=== PATIENT | male | born 1930 | race Caucasian/White ===

== ENCOUNTER → 2018-10-04 | Outpatient (CLI) | payer MEDICARE, OTHER ==
[~2018-10-04] VITALS: Ht 182.9 cm; Wt 68.0 kg
[~2018-10-04] MED LIST: ASPIRIN325 PO; ASTEPRO205.5 MCG/ NS; CLOPIDOGREL75 MG PO; COMBIGAN EYE DR10 ML OP; KEFLEX500 M1 PO; LIPITOR10 MG PO; LISINOPRIL10 MG PO; LUMIGAN2.5 M1 OP; UNICOMPLEX M TA1 TA1 PO; ZYRTEC10 M5 PO; [UNRECOGNIZED DRUG - OTHER] TP
[2018-10-04 09:35] VITALS: BP 140/67
[2018-10-04 09:41] LABS: HEMATOCRIT 30.2 % (42.0-52.0); HEMOGLOBIN 10.1 gm/dL (14.0-18.0); MCH 30.7 pg (26.0-34.0); MCHC 33.3 g/dL (28.0-37.0); MCV 92.3 fL (80.0-100.0); MPV 7.7 fl. (7.2-11.1); RBC 3.27 mil/uL (4.50-6.00); RDW-CV 13.8 % (10.5-14.5)
[2018-10-04 09:42] LABS: POTASSIUM 3.5 mmol/L (3.5-5.1)
[2018-10-04 09:45] LABS: APTT 26.8 Seconds (25.0-31.3); INR 1.2; PROTIME 12.3 Seconds (9.20-11.50)
[2018-10-04 10:00] VITALS: BP 140/67
--- NOTE | 2018-10-20 09:08 | PATH ---
[address] [place] [address] PATHOLOGY RPT PROCEDURE Name: JIM COON Room: [facility] SARAH Lamont#: [id number] Admission: 10/04/18 Date of : [birth year] Discharge: Report #: [id number] Path Case #: [id number] LCA Accession Number: [id number] . 01 Material submitted: . LIVER MASS BIOPSY . 01 Clinical history: . 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 02 Diagnosis: Liver, biopsy: - Adenocarcinoma. - Background foci of lymphocytes present, see included flow report for further diagnosis (History of CLL noted). - See comment. (MAP:administrative asst; 10/06/2018) AZJ/10/07/2018 . 02 Comment: Immunohistochemical stains are performed on this specimen (block A2; appropriate controls) as follows: . TTF-1 - Positive. Napsin- A - Positive. CK7 - Positive. CK20 - Negative. CDX2 - Negative. T40 - Negative. . The immuno profile and histologic findings are compatible with an adenocarcinoma, and is consistent with a lung primary. . These findings are discussed with Dr. Shaheen Vasquez's nurse, on 10/06/2018 at 3:25 p.m. . Co-review is Dr. Guzman. . ([place] [place] 10[place]06[place]2018) . 02 Addendum: . Special studies report received from [facility], [address] [place] [address], [address], [place], [address], on case [id number], labeled with their number [id number], dated 10/14/2018. . PD-L1 [place] [address] PATHOLOGY RPT PROCEDURE Name: JIM COON JOSE Room: [facility]#: [id number] Admission: 10/04/18 Date of : [birth year] Discharge: Report #: [id number] Path Case #: [id number] Body site: Liver, mass, biopsy. Specimen received: 1 paraffin block labeled "[id number]". . Clinical History Non-small cell carcinoma . Results Table PD-L1 - KEYTRUDA (R) Tumor Interpretation Proportion [id number] 50% High Expression . . Reference Ranges PD-L1 protein expression is determined by using the Tumor Proportion Score (TPS), which is the percentage of at least 100 viable tumor cells showing complete or partial membrane staining at greater than or equal to 1+. TPS less than 1% = No Expression TPS between 1% and 49% = Low Expression - Eligible for second-line treatment with KEYTRUDA (R) (pembrolizumab). TPS greater than or equal to 50% = High Expression - Eligible for first or second-line treatment with KEYTRUDA (R) (pembrolizumab). . . at [facility]. Luke Fish M.D. . Tests PD-L1 IHC Analysis . Intended Use: PD-L1, 22C3 pharmDx (TM) is FDA approved for use in the detection of PD-L1 in formalin-fixed paraffin-embedded non-small cell lung carcinoma using the [employer] 48 platform. The Assay is indicated as an aid in identifying metastatic NSCLC patients for treatment with KEYTRUDA(R) (pembrolizumab). PD-L1, 22C3 pharmDx (TM) is a trademark of [employer] an [employer]. Reference ranges for this test in other cancer types are not approved at this time. . References: Delia RS, Miah P, Eva D-W, et al: Pembrolizumab versus docetaxel for previously treated, HE-A9-ukoeufui, advanced tpi-pdwlr-bjzx lung cancer (KEYNOTE-010): a randomized controlled trial. Lancet 2015 Jul 14; Online(44) 9666-2. . Saida CANADA, Jeana NA, Amalia R, et al: Pembrolizumab for the Treatment of Ijb-Lvidt-Lhui Lung Cancer. N Engl J Med 2015 December 14; 372:7896-2378. . Please contact [facility] [place] [address] PATHOLOGY RPT PROCEDURE Name: JIM COON Room: [facility] WANDA Miguel#: [id number] Admission: 10/04/18 Date of : [birth year] Discharge: Report #: [id number] Path Case #: [id number] . Disclaimer This Test was performed by [facility]. at [address] [place] [address] [address], [place], [address]. [facility] is a business unit of [employer] a wholly-owned subsidiary of [employer]. . . Any image(s) that accompany this report is/are a it sales representative image(s) only and should not be used to render a diagnosis. . This interpretation is contingent on the specimen and the clinical information received. . Known positive cells or tissues are employed with each test and examined to ensure positivity. Positive and negative internal controls, if present, react appropriately. . This analysis is an adjunct to the evaluation of the referring physician and does not represent a final diagnosis. . The immunohistochemistry tests performed at [facility]. were validated on tissue fixed in 10% neutral buffered formalin. The performance characteristics of the tests performed on tissue processed in other fixatives is not known. . This assay has not been validated on decalcified tissues. Results should be interpreted with caution if this specimen was decalcified given the likelihood of decreased staining or false negativity on decalcified specimens. . . A complete copy of the report is on file. . Professional services performed by [employer]. at [address], [place] [address]. Technical services performed by [employer]. at [facility] [facility] [address], [place] [address]. . (AMJ 10/14/2018) . . . . . Special studies report received from [facility], [address] [place] [address], [address], [place], [address], on case [id number], labeled with their number [id number], dated 10/14/2018. [place] [address] PATHOLOGY RPT PROCEDURE Name: JIM COON JOSE Room: [facility]#: [id number] Admission: 10/04/18 Date of : [birth year] Discharge: Report #: [id number] Path Case #: [id number] . Fluorescence in situ Hybridization (FISH) Report TargetGene Analysis . RESULT: Negative for ROS1 gene rearrangement . Specimen Type: Tissue, Liver Biopsy . Indication for Study: Adenocarcinoma, Lung Primary . INTERPRETATION: Fluorescence in situ hybridization (FISH) analysis was performed on this patient's paraffin embedded tissue specimen using a dual color break apart DNA probes for ROS1 gene. . One hundred interphase nuclei were examined and no evidence of a ROS1 gene specific rearrangement (split signal pattern) was detected. . Genetic changes other than those assayed here cannot be ruled out on the basis of this testing. Correlation with clinical and other pathological findings is suggested for a complete interpretation of these results. . See report [id number] for further information. See report [id number] for further information. See Molecular report [id number] for further information. . The following TargetGene FISH analysis was performed on this patient's specimen: . Probe Detection Parameters Result ISCN ROS1 (6q22) Detects a rearrangement Not Detected nuc cherri(3'ROS1, of the ROS1 gene 5'ROS1)x2(3'ROS1 con 5'ROS1x2)(100) . . . . at [facility] [facility]. Madeleine Doll, PhD, FAC Director of Clinical Cytogenetics . Methodology: The patient specimen is processed onto a glass slide. Fluorescent DNA probe(s) is(are) applied to the cells on the slide under conditions of denaturation followed by hybridization. Stringency washes are applied and the slide is subsequently counterstained. A minimum of 100 interphase nuclei are analyzed unless otherwise [place] [address] PATHOLOGY RPT PROCEDURE Name: JIM COON JOSE Room: [facility]#: [id number] Admission: 10/04/18 Date of : [birth year] Discharge: Report #: [id number] Path Case #: [id number] References: Jose Antonio Pereira, Mayur BUCHANAN, et al. ROS1 rearrangements define a unique molecular class of lung cancers. J Clin Oncol, 2012;30:863-70. . Jose Antonio LAWRENCE, Mayur FLEMING, Kaiser Y-J, et al. Crizotinib in ROS1-rearranged gyo-umbdu-cinm lung cancer. N Engl J Med, 2014;371:1963-71 . Disclaimer This Test was performed by [employer] at [address] [place] [address]. . [facility] is a business unit of [employer] a wholly-owned subsidiary of [employer]. . . This assay has not been validated on decalcified tissues. Results should be interpreted with caution if this specimen was decalcified given the likelihood of false negativity on decalcified specimens. . Any image(s) that accompany this report is/are a it sales representative image(s) only and should not be used to render a diagnosis. . This test was developed and its performance characteristics determined by [employer]. It has not been cleared or approved by the Food and Drug Administration. . A complete copy of the report is on file. . Professional services performed by [employer]. at [address] [place] [address], [place] [id number]. Technical services performed by [employer]. at [address] [place], [place] [id number]. . (AM 10/15/2018) . . . . . Special studies report received from [facility], [address] [place] [address], [address], [facility], on case [id number], labeled with their number [id number], dated 10/14/2018. . Fluorescence in situ Hybridization (FISH) Report ALK Analysis . RESULT: No Evidence of ALK Gene Rearrangement Detected by FISH nuc cherri(ALKx3 approximately 4)() [place] [address] PATHOLOGY RPT PROCEDURE Name: JIM COON Room: [facility]#: [id number] Admission: 10/04/18 Date of : [birth year] Discharge: Report #: [id number] Path Case #: [id number] . Specimen Type: Tissue, Liver Biopsy . Specimen Fixative Type: Not Provided . Indication for Study: Adenocarcinoma, Lung Primary . INTERPRETATION: Fluorescence in situ hybridization (FISH) analysis was performed on paraffin embedded tissue using an ALK Break Apart DNA probe (FDA approved kit, [employer]) for the detection of rearrangements involving the ALK gene. . Fifty interphase nuclei were examined and no evidence of ALK specific gene rearrangement was detected. 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 . Genetic changes other than those assayed here cannot be ruled out on the basis of this testing. Correlation with clinical and pathological findings is suggested for a complete interpretation of the results. . See FISH report [id number] for further information. See report [id number] for further information. See Molecular report [id number] for further information. . at [employer]. Madeleine Doll, PhD, FACMG Director of Clinical Cytogenetics . Methodology: FISH was performed using ALK Break Apart FISH Probe Kit (FDA approved, [employer] A minimum of fifty invasive tumor cells were examined from areas that were delineated by a Pathologist from a corresponding H/E slide. A classification of each nucleus as positive or negative is recorded according to lastex operator's instruction. The results are calculated as a percentage of the total positive cells to total cell analyzed. The normal cutoff was established as 15% using NSCLC FFPE tissue specimen. A negative result is reported when a sample with <15% rearranged cells and a positive result is defined when a sample shown greater than or equal to 15% cells with ALK gene rearrangements. A result is considered uninformative when there are less than 50 invasive tumor cells for FISH analysis. . Intended Use: The ALK Break Apart FISH Probe procedure is a qualitative test to detect rearrangements involving the ALK gene [place] [address] PATHOLOGY RPT PROCEDURE Name: COONJIM HOYT JOSE Room: [facility]#: [id number] Admission: 10/04/18 Date of : [birth year] Discharge: Report #: [id number] Path Case #: [id number] hybridization (FISH) in FFPE NSCLC tissue specimens to aid in identifying those patients eligible for treatment with XALKOR (crizotinib). It is intended for use only on 10% neutral buffered formalin fixed paraffin-embedded NSCLC tissue. The optimal fixation time for tissue is 6-48 hours. The test is for prescription use only. . Disclaimer This Test was performed by [facility] [employer] at [address], [address]. [facility] is a business unit of [employer] a wholly-owned subsidiary of [employer]. . . This assay has not been validated on decalcified tissues. Results should be interpreted with caution if this specimen was decalcified given the likelihood of false negativity on decalcified specimens. . Any image(s) that accompany this report is/are a it sales representative image(s) only and should not be used to render a diagnosis. . A complete copy of the report is on file. . Professional services performed by [employer]. at [facility] [address], [facility] [address], [place] [address]. Technical services performed by [employer]. at [address] [place] [address], [facility] [address], [place] [address]. . ([facility] 10/15/2018) . . . . . Special studies report received from [facility], [address] [place] [address], [address] [address], on case [id number], labeled with their number [id number], dated 10/15/2018. . EGFR Gene Mutation Analysis . INTERPRETATION: Positive in exon 21 for mutation, p.L858R. . Indication for Study: Metastatic NSCLC . Specimen Site and Type: Paraffin-Embedded Tissue-Liver . Nucleotide Change: c.2573T>[place] [address] PATHOLOGY RPT PROCEDURE Name: JIM COON [id number] Admission: 10/04/18 Date of : [birth year] Discharge: Report #: [id number] Path Case #: [id number] Amino Acid Change: p.L858R . Comments: A missense mutation was detected within exon 21 of the EGFR gene. This mutation is correlated with responsiveness to EGFR tyrosine kinase inhibitor therapies. Results should be interpreted in conjunction with clinical and other laboratory findings for the most accurate interpretation. . A subgroup of non-small cell lung cancer (NSCLC) patients has shown clinical responsiveness to the epidermal growth factor receptor (EGFR) inhibitors gefitinib (IRESSA) and erlotinib (Tarceva), including never smokers, individuals of ethnicity, and those with adenocarcinoma histology. In the majority of patients with highly responsive tumors, the tumor contains a somatic mutation within the EGFR tyrosine kinase domain. The presence of a somatic EGFR mutation is significantly associated with response to gefitinib and erlotinib, and is strongly predictive of prolonged survival in NSCLC patients. . T790M mutation had been tested but was not detected in this submitted specimen. . This assay is able to detect 5% mutation in a background of wild-type DNA. . . See report [id number] for further information. See FISH report [id number] for further information. See report [id number] for further information. . at [employer]. Pancho Vásquez, Ph.D., ESPINOZA DABMG, DABCC, DLm, M([facility])cm, ERIC([facility])cm . . Methodology: Genomic DNA was isolated from the provided tumor specimen. Exons 18 through 21 of the EGFR gene were subjected to SNaPShot multiplex PCR and primer extension for mutation detection. . Table: This Assay Can Detect the Following Mutations EGFR EGFR Codon Mutation Approximate % of all EGFR Exon Mutations 18 E709 E709K,E709Q 1% G719 G719S,G719C,G719A,G719D 2-5% 19 Insertions 18bp ins 1% Deletions 9,12,15,18,24 bp del 45% 20 Insertions 3,6,8,12 bp ins 5-10% S768 S768I 1-2% [place] [address] PATHOLOGY RPT PROCEDURE Name: JIM COON Room: [facility] Miguel#: [id number] Admission: 10/04/18 Date of : [birth year] Discharge: Report #: [id number] Path Case #: [id number] R776 R776C <1% T790 T790M 2% 21 L858 L858R 40% A859 A859T <1% L861 L861Q,L861R 2-5% * This Assay does not distinguish between the 18bp insertion and deletions at nucleotide position 2235 and 2237 . References: 1. Jamie PA, Sheron JA, Edilson BE. Epidermal Growth Factor Receptor Mutations in Gfq-Kaxph-Pdhv Lung Cancer: Implications for Treatment and Tumor Biology. J. Clin. Oncol. 2005; 23:0149-6044. 2. Jo NEWMAN et al. A Platform for Rapid Detection of Multiple Oncogenic Mutations with Relevance to Targeted Therapy in Kiv-Jiyao-Chiz Lung Cancer. J. Mol. Diagn. 2011;13(1):74-84. . Disclaimer This Test was performed by [employer]. at [facility], [address]. [facility] is a business unit of [employer] a wholly-owned subsidiary of [employer]. . . Any image(s) that accompany this report is/are a it sales representative image(s) only and should not be used to render a diagnosis. . This test was developed and its performance characteristics determined by [employer]. It has not been cleared or approved by the Food and Drug Administration. . A complete copy of the report is on file. . Professional services performed by [employer]. at [address], [place] [address]. Technical services performed by [employer]. at [address], [place] [address]. . (AMJ 10/15/2018) . AZJ/10/15/2018 Addendum Electronically Signed by Daniel Rousseau M.D. . 02 Electronically signed: . Daniel Rousseau MD, Pathologist NPI- [id number] . 01 Gross description: . The specimen is received in formalin, labeled "Jim Coon, [place] [address] PATHOLOGY RPT PROCEDURE Name: MALIK COONLORD GARCIA Room: [facility]#: [id number] Admission: 10/04/18 Date of : [birth year] Discharge: Report #: [id number] Path Case #: [id number] tissue , 5.24 x 3.73 x 6.89 cm", are multiple badillo-white needle cores and its fragments measuring 1.4 x 0.4 x 0.1 cm in aggregate. The specimen is entirely submitted in A1-A2. Also received is an RPMI tube labeled with patient name and liver mass tissue, 5.24 x 3.73 x 6.89 cm consisting two similar cores. The specimen is forwarded for additional studies. (SWS; 10/04/2018) SHS/SHS . 02 Microscopic: . Special studies report received from [facility], [address] [place] [address], [address], [place], [address], on case [id number], labeled with their number [id number], dated 10/06/2018. . Flow Cytometry: Hematologic Neoplasia Assessment . Clinical History Chronic Lymphocytic Leukemia . Indication for Study Evaluation for hematolymphoid neoplasia . Specimen Liver Biopsy . Viability 24% (7AAD exclusion) . 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 See comments. . Comments Results should be interpreted with caution due to reduced viability of the specimen (24%) and low cell yield. Correlation with available clinical, laboratory, and morphologic data is recommended. . Populations Analyzed Abnormal B-cells: 1% Scatter properties compatible with small to intermediate cell size, cells characterized as: CD45+, CD19+, CD20-, CD5+, CD10-, CD23+, FMC7-, CD30-, CD38-, CD43+, HLA DR+, sIgs are negative, cIg kappa+ Remaining 2% B-cells: 0.1%, polytypic/polyclonal sIg light chain Lymphocytes: pattern T-cells: no significant abnormalities of the markers tested CD4:CD8: 1.8 [place] [address] PATHOLOGY RPT PROCEDURE Name: JIM COON [id number] Admission: 10/04/18 Date of : [birth year] Discharge: Report #: [id number] Path Case #: [id number] NK cells: 0.8% Granulocytes: 3% Present Monocytes/ 1% Present Histiocytes: CD45 Negative 93% No significant reactivity with the markers tested Events/Debris: (may represent non-hematolymphoid cells, degenerated cells, debris, unlysed red blood cells, etc.) . Morphologic Evaluation A slide was reviewed for quality control microbiology supervisor purposes only. . Specimen Description Cell Yield: 0.39x10 and 6 Due to low cell count and viability, the lab is unable to provide an accurate cell yield. A limited panel of antibodies was performed and an average of 1200_ events were acquired per tube. Flow cytometry data derived from an acquisition with less than 10,000 events needs to be interpreted within the context of all clinical, laboratory, and morphologic information. . Reagent(s) Used CD2, CD3, CD4, CD5, CD7, CD8, CD10, CD11b, CD19, CD20, CD23, CD30, CD38, CD43, CD45, CD56, CD57, FMC-7, HLA-DR, kappa, lambda, CytoKappa, CytoLambda . at [facility]. Itzel Perea MD Hematopathologist . Intended Use Flow cytometry is optimally used to immunophenotypically characterize abnormal populations when they are detected. Negative flow cytometry results do not exclude lymphoma or neoplasia. Possible false negative flow cytometry results may occur in, but are not limited to, the following: neoplastic cells in Hodgkin lymphoma are not typically adequately represented by routine clinical flow cytometry; neoplastic cells may be lost or inadequately represented due to degeneration, sample processing, sampling artifact, or patchy involvement; plasma cells are typically underrepresented by flow cytometry; immature cells/blasts may be underrepresented due to hemodilution; myeloproliferative disorders and low grade myelodysplasia may not have immunophenotypic abnormalities or increased blasts. Correlation with all available clinical, laboratory, and morphologic data is always necessary to assess for the possibility of false negative flow cytometry results and to establish a diagnosis. Each marker in this analysis was used to assess for potential antigenic abnormalities or to evaluate detected abnormalities. . [address] [address] PATHOLOGY RPT PROCEDURE Name: JIM COON [facility]: [facility].#: [id number] Admission: 10/04/18 Date of : [birth year] Discharge: Report #: [id number] Path Case #: [id number] Disclaimer(s) This test was performed at [facility]. at [address], [place], [address] - Mental Retardation Nurse: Marc Ramírez MD. [employer] is a business unit of [employer] a wholly-owned subsidiary of [employer]. . Any image or images that accompany this report are it sales representative images only and should not be used to render a diagnosis. . This test was developed and its performance characteristics determined by [facility]. It has not been cleared or approved by the Food and Drug Administration (FDA). The FDA has determined that such clearance or approval is not necessary. . For inquiries, the physician may contact Lab: [phone] . A complete copy of the report is on file. . Professional services performed by [employer]. at [address], [place] [address]. Technical services performed by [employer]. at [address], [place] [address]. . (AMLupis 10/06/2018) . . 02 Pathologist provided ICD-10: C22.9 . 02 CPT . 551154, R07155, [id number] Performed at: [address], [place] [id number] MD Bill Caal MD Phone: [phone] Performed at: [address] [id number] MD Gabriela Guzman MD Phone: [phone]
== END | disposition home or self-care (01) ==
LOC: M.INT 08:09
PROVIDERS: Radiology Diagnostic Radiology
DX: C22.9 Malignant neoplasm of liver, not specified as primary or secondary (principal); I10 Essential (primary) hypertension; H40.9 Unspecified glaucoma; Z90.49 Acquired absence of other specified parts of digestive tract; Z98.890 Other specified postprocedural states; Z79.899 Other long term (current) drug therapy; Z88.8 Allergy status to other drugs, medicaments and biological substances; Z86.73 Personal history of transient ischemic attack (TIA), and cerebral infarction without residual deficits; Z85.6 Personal history of leukemia

== ENCOUNTER 2018-10-09 09:34 | Emergency (ER) | payer MEDICARE, OTHER ==
[~2018-10-09] VITALS: Ht 182.9 cm; Wt 63.5 kg
[~2018-10-09 09:34] MED LIST changes: -KEFLEX500 M1 PO
[2018-10-09 10:55] LABS: HEMATOCRIT 33.5 % (42.0-52.0); MCH 30.5 pg (26.0-34.0); MCV 92.7 fL (80.0-100.0); MPV 7.5 fl. (7.2-11.1); NUCLEATED RBCS 0 /100WBC; PLATELET COUNT* 337 thou/uL (150-400); RBC 3.61 mil/uL (4.50-6.00); RDW-CV 13.9 % (10.5-14.5)
[2018-10-09 11:21] LABS: ALBUMIN 2.8 g/dL (3.4-5.0); ALKALINE PHOSPHATASE 92 U/L (46-116); ANION GAP 7 mmol/L (7-16); BUN 26 mg/dL (7-18); CALCIUM 10.5 mg/dL (8.5-10.1); CHLORIDE 104 mmol/L (98-107); CO2 30 mmol/L (21-32); CREATININE 1.1 mg/dL (0.6-1.3); GLUCOSE 99 mg/dL (70-99); POTASSIUM 3.8 mmol/L (3.5-5.1); SGOT 45 U/L (15-37); SGPT 21 U/L (30-65); SODIUM 141 mmol/L (136-145); TOTAL BILIRUBIN 0.5 mg/dL (<0.1-1.0); TOTAL PROTEIN 6.8 g/dL (6.4-8.2); TROPONIN-I LEVEL <0.06 ng/mL (<0.06)
[2018-10-09] MEDS ORDERED: KEFLEX500 M1 PO (12:02)
[2018-10-09 12:15] LABS: ABSOLUTE LYMPHOCYTES 16.2 thou/uL (0.8-5.3); ABSOLUTE MONOCYTES 0.6 thou/uL (0.0-1.2); ABSOLUTE NEUTROPHILS 13.2 thou/uL (1.6-8.1); PLATELET ESTIMATE ADEQUATE
[2018-10-09 12:47] VITALS: BP 143/69
--- NOTE | 2018-10-10 12:10 | EKG ---
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1930 Requested By: Maryan Cleveland Order Number: [id number] MD: Daniel Edward Measurements Intervals [place] Rate: 73 P: 55 CA: 215 QRS: 49 QRSD: 98 T: 36 QT: 386 QTc: 426 Interpretive Statements Sinus rhythm Borderline prolonged CA interval Baseline wander in lead(s) V6 Compared to ECG 04/26/2016 08:50:45 ST (T wave) deviation no longer present Electronically Signed On 10-10-2018 12:10:49 CDT by Daniel Edward [email or web address] <ELECTRONICALLY SIGNED> By: Daniel Edward MD, FACC 10/10/18 1210 1036 1036 Daniel Edward MD, FAC /EPI
== END 2018-10-09 12:47 | disposition home or self-care (01) ==
LOC: M.ERS 09:34
PROVIDERS: Physician Assistant
DX: S01.01XA Laceration without foreign body of scalp, initial encounter (principal); Z90.49 Acquired absence of other specified parts of digestive tract; Z88.8 Allergy status to other drugs, medicaments and biological substances; W06.XXXA Fall from bed, initial encounter; Y93.89 Activity, other specified; Y92.89 Other specified places as the place of occurrence of the external cause; Y99.8 Other external cause status